=== PATIENT | male | born 1950 | race Caucasian/White ===

== ENCOUNTER → 2019-11-11 10:24 | Outpatient (CLI) | payer MEDICARE ==
[2013-03-31 11:46] VITALS: BMI 25.8
[~2019-11-11 10:24] MED LIST: BACTRIM DS TABL1 TAB PO; EXCEDRIN PO; FIORICET TABLET1 TAB PO; LEVOTHROID25 MCG OR; LISINOPRIL10 MG PO; NORCO 10/325 TA1 TA1 OR; NORCO 10/325 TA1 TA1 PO; PROTONIX40 MG PO; PROZAC40 MG PO; TOPAMAX50 MG OR; WELLBUTRIN XL300 M1 PO
[2019-11-11 11:26] LABS: BASOPHILS 1.1 % (0-2); HEMATOCRIT 52.6 % (42.0-54.0); HEMOGLOBIN 17.6 g/dL (13.5-17.5); IMMATURE GRANULOCYTES 0.5 % (0-5); LYMPHOCYTES 33.4 % (15-50); MCH 32.8 pg (26.0-34.0); MCHC 33.5 g/dL (31.0-37.0); MCV 98.1 fL (80.0-100.0); MEAN PLATELET VOLUME 10.4 fL (7.4-10.4); MONOCYTES 12.8 % (2-11); NEUTROPHILS 48.2 % (40-80); RBC 5.36 10x6/uL (4.20-6.10); RDW 13.4 % (11.5-14.5); WBC 6.3 10x3/uL (4.8-10.8)
[2019-11-11 11:29] LABS: PLATELET COUNT 144 10x3/uL (130-400)
[2019-11-11 12:10] LABS: ALBUMIN 4.1 g/dL (3.4-5.0); BILIRUBIN - TOTAL 0.26 mg/dL (0.2-1.3); CALCIUM 9.5 mg/dL (8.5-10.1); CARBON DIOXIDE 26.3 mmol/L (21.0-32.0); CHOL - HDL RATIO 5.3 ratio (2.3-4.9); CREATININE - SERUM 1.5 mg/dL (0.6-1.3); LDL-HDL RATIO 3.3 ratio (1.5-3.5); POTASSIUM - SERUM 4.3 mmol/L (3.5-5.1); PROTEIN - SERUM 6.6 g/dL (6.4-8.2); THYROID STIMULATING HORMONE 1.69 uIU/mL (0.36-3.74)
[2019-11-12 14:08] LABS: DHEA-SULFATE 9.9 ug/dL (30.9-295.6); ESTRADIOL 64.9 pg/mL (7.6-42.6); PROGESTERONE 0.1 ng/mL (0.0-0.5); PSA - % FREE 64.3 % (()); PSA - FREE 0.45 ng/mL; PSA - TOTAL 0.7 ng/mL (0.0-4.0); T3 - FREE 3.4 pg/mL (2.0-4.4)
[2019-11-14 05:07] LABS: TESTOSTERONE - FREE 21.7 pg/mL (6.6-18.1); TESTOSTERONE - SERUM 1245 ng/dL (264-916)
== END | disposition home or self-care (01) ==
LOC: D.LAB 10:24
PROVIDERS: ATTEND Nurse Practitioner Family
DX: E29.1 Testicular hypofunction (principal); E34.9 Endocrine disorder, unspecified; E03.9 Hypothyroidism, unspecified; R53.83 Other fatigue; I30.9 Acute pericarditis, unspecified; N40.1 Benign prostatic hyperplasia with lower urinary tract symptoms; E55.9 Vitamin D deficiency, unspecified

== ENCOUNTER 2020-05-21 21:22 | Emergency (ER) | payer MEDICARE ==
[~2020-05-21] VITALS: Ht 167.6 cm; Wt 77.3 kg
[2020-05-21 21:26] VITALS: BP 143/87; Ht 167.6 cm; Wt 77.3 kg
[2020-05-21] MEDS ORDERED: LEVOXYL50 MCG PO (21:28)
[2020-05-21] MEDS ORDERED: TOPAMAX100 MG PO (21:29)
[2020-05-21] MEDS ORDERED: TYLENOL #4 W/CO1 TAB PO (22:33)
== END 2020-05-21 22:55 | disposition home or self-care (01) ==
LOC: D.ER 21:22
DX: S61.411A Laceration without foreign body of right hand, initial encounter (principal); I10 Essential (primary) hypertension; W25.XXXA Contact with sharp glass, initial encounter; Y93.9 Activity, unspecified; Y92.9 Unspecified place or not applicable